=== PATIENT | female | born 1985 | race Caucasian/White ===

== ENCOUNTER 2017-07-19 00:26 | Emergency (ER) | payer SELFPAY ==
[~2017-07-19] VITALS: Ht 167.6 cm; Wt 70.0 kg
[~2017-07-19 00:26] MED LIST: SUBO8MIS SL; XANA1TAB2 PO
[2017-07-19 00:29] VITALS: BP 145/94; PULSE 130; RESP 18; TEMP 98.7; O2SAT 100
[2017-07-19] MEDS ORDERED: SODIUM CHLORIDE 0.9% FLUSH 10 ML FLUSH IVF PRN (01:00)
[2017-07-19] MEDS ORDERED: SODIUM CHLOR 0.9% 1000 ML INJ 1,000 ML IV ONE (02:00)
--- NOTE | 2017-07-19 02:17 | RADRPT ---
EXAM DATE/TIME: 07/19/2017 00:50 [facility] COMPARISON: No previous studies available for comparison. INDICATIONS : Chest pain. MEDICAL HISTORY : None. SURGICAL HISTORY : None. ENCOUNTER: Initial ACUITY: 1 day PAIN SCORE: 10/10 LOCATION: Bilateral chest FINDINGS: No infiltrate demonstrated. No pneumothorax. Slight blunting of the right costophrenic angle. Heart size normal. There is mild S-shaped thoracolumbar scoliosis. CONCLUSION: Pleural scarring or tiny effusion at the right lung base and mild scoliosis. Otherwise negative. Bienvenido Nagel MD on July 19, 2017 at 1:05 Board Certified Radiologist. This report was verified electronically.
[2017-07-19 02:28] LABS: AUTOMATED NEUTROPHIL # 11.8 TH/MM3 (1.8-7.7); BASOPHIL # 0.1 TH/MM3 (0-0.2); BASOPHIL % 0.5 % (0.0-2.0); EOSINOPHIL % 0.2 % (0.0-4.0); HEMOGLOBIN 14.2 GM/DL (11.6-15.3); LYMPH % 9.6 % (9.0-44.0); LYMPHOCYTE # 1.3 TH/MM3 (1.0-4.8); MEAN CELL VOLUME 82.7 FL (80.0-100.0); MEAN CORPUSCULAR HEMOGLOBIN 28.6 PG (27.0-34.0); MEAN CORPUSCULAR HGB CONC 34.6 % (32.0-36.0); MEAN PLATELET VOLUME 9.5 FL (7.0-11.0); MONO % 4.5 % (0.0-8.0); MONOCYTE # 0.6 TH/MM3 (0-0.9); NEUT % 85.2 % (16.0-70.0); PLATELET COUNT 142 TH/MM3 (150-450); RED BLOOD COUNT 4.96 MIL/MM3 (4.00-5.30); RED CELL DISTRIBUTION WIDTH 15.9 % (11.6-17.2); WHITE BLOOD COUNT 13.9 TH/MM3 (4.0-11.0)
[2017-07-19 02:32] LABS: ALBUMIN 4.2 GM/DL (3.4-5.0); ALKALINE PHOSPHATASE 89 U/L (45-117); ALT (GPT) 13 U/L (10-53); AST (GOT) 15 U/L (15-37); BICARBONATE 21.9 MEQ/L (21.0-32.0); BLOOD UREA NITROGEN 14 MG/DL (7-18); CHLORIDE 107 MEQ/L (98-107); CREATININE 0.81 MG/DL (0.50-1.00); GLOMERULAR FILTRATION RATE 81 ML/MIN (>89); GLUCOSE,RANDOM 84 MG/DL (74-106); MAGNESIUM 1.9 MG/DL (1.5-2.5); SODIUM (NA) 137 MEQ/L (136-145); TOTAL BILIRUBIN ADULT 0.8 MG/DL (0.2-1.0); TOTAL PROTEIN 8.9 GM/DL (6.4-8.2); TROPONIN I LESS THAN 0.02 NG/ML (0.02-0.05)
[2017-07-19 02:35] LABS: D-DIMER 1.16 MG/L FEU (0.00-0.50); PROTHROMBIN TIME - PATIENT 10.1 SEC (9.8-11.6)
[2017-07-19 02:46] VITALS: RESP 15; O2SAT 99
[2017-07-19 02:47] VITALS: BP 130/58; PULSE 92; RESP 15; O2SAT 99
--- NOTE | 2017-07-19 03:36 | PD ---
HPI . Respiratory symptoms Chief Complaint: Respiratory Symptoms Time Seen by Provider: 00:41 Travel History International Travel<30 days: No Contact w/Intl Traveler<30days: No Traveled to known affect area: No History of Present Illness HPI 32-year-old female notes relatively sudden onset of anxiety, palpitations, and shortness of breath this evening. Patient states she has never had this same type of recurrence before. Patient denies having leg pain or swelling, confine travel or recent surgery., No history of bleeding dyscrasias, blood clots, DVTs , or family history of same. Patient denies fever chills sweats. Patient denies any toxic ingestion. Patient states she takes Suboxone and has used opiates before, but is not taking any medications that would cause any type of anxiety or tachycardia including methamphetamines or cocaine. FORMERLY [facility] Past Medical History Narrative Medical Past medical history reviewed Arthritis: Yes Anxiety: Yes Depression: Yes Diminished Hearing: Yes (bilateral ear) ?: Not LMP: 06/13/17 : 2 Para: 1 : 1 Past Surgical History Oral Surgery: Yes Social History Alcohol Use: No Tobacco Use: Yes Substance Use: Yes (MARIJUANA, SUBOXONE) Allergies-Medications (Allergen,Severity, Reaction): Coded Allergies: No Known Allergies (Verified Allergy, Unknown, 07/19/17) Reported Meds & Prescriptions Reported Meds & Active Scripts Active Reported Suboxone Sublingual Film (Buprenorphine-Naloxone Sublingual Film) 8-2 Mg Film 1 Film SL Unique ID number required: Xanax (Alprazolam) 1 Mg Tab 1 Mg PO Q6H PRN Narrative Medication Allergies and medications reviewed Review of Systems Except as stated in HPI: all other systems reviewed are Neg General / Constitutional: No: Fever Eyes: No: Visual changes HENT: No: Headaches Cardiovascular: Positive: Palpitations, Tachycardia, Dyspnea on exertion, No: Chest Pain or Discomfort, Irregular Rhythm, Diaphoresis, Syncope, Varicosities, Edema, Cyanosis, Varicosities, Phlebitis, Claudication Respiratory: No: Shortness of Breath Gastrointestinal: No: Nausea, Vomiting, Abdominal Pain Genitourinary: No: Dysuria Musculoskeletal: No: Pain Skin: No Rash Neurologic: No: Weakness Psychiatric: No: Depression Endocrine: No: Polydipsia Hematologic/Lymphatic: No: Easy Bruising Physical Exam Narrative GENERAL: Awake and alert, oriented 3, no acute distress. Patient appears slightly anxious. Tachycardic sinus rhythm on monitor 110 bpm. Blood pressure was normal. Patient is afebrile SKIN: Warm and dry. Color is normal no diaphoresis cyanosis pallor no piloerection HEAD: Atraumatic. Normocephalic. EYES: Pupils equal and round. No scleral icterus. No injection or drainage. ENT: No nasal bleeding or discharge. Mucous membranes pink and moist. NECK: Trachea midline. No JVD. Supple full range of motion CARDIOVASCULAR: Tachycardic regular 110 bpm, S1-S2 no murmurs rubs or gallop RESPIRATORY: No accessory muscle use. Clear to auscultation. Breath sounds equal bilaterally. GASTROINTESTINAL: Abdomen soft, non-tender, nondistended. Hepatic and splenic margins not palpable. MUSCULOSKELETAL: Extremities without clubbing, cyanosis, or edema. No obvious deformities. NEUROLOGICAL: Awake and alert. No obvious cranial nerve deficits. Motor grossly within normal limits. Five out of 5 muscle strength in the arms and legs. Normal speech. PSYCHIATRIC: Slight anxiety Data Data Last Documented VS Vital Signs Date Time Temp Pulse Resp B/P (MAP) Pulse Ox O2 Delivery O2 Flow Rate FiO2 07/19/17 06:24 78 19 122/72 (89) 99 Room Air 07/19/17 00:29 98.7 Orders Orders Electrocardiogram (07/19/17 00:47) B-Type Natriuretic Peptide (07/19/17 00:47) Ckmb (Isoenzyme) Profile (07/19/17 00:47) Complete Blood Count With Diff (07/19/17 00:47) Comprehensive Metabolic Panel (07/19/17 00:47) D-Dimer (07/19/17 00:47) Magnesium (Mg) (07/19/17 00:47) Prothrombin Time / Inr (Pt) (07/19/17 00:47) Act Partial Throm Time (Ptt) (07/19/17:47) Troponin I (07/19/17:47) Chest, Single Ap (07/19/17 00:47) Ecg Monitoring (07/19/17 00:47) Bilateral Bp Monitoring (07/19/17 00:47) Iv Access Insert/Monitor (07/19/17 00:47) Oximetry (07/19/17:47) Oxygen Administration (07/19/17 00:47) Sodium Chloride 0.9% Flush (Ns Flush) (07/19/17 01:00) Ct Pulmonary Angiogram (07/19/17 ) Beta Hcg (Quant/Titer) (07/19/17 03:08) Sodium Chlor 0.9% 1000 Ml Inj (Ns 1000 M (07/19/17 02:00) Drug Screen, Random Urine (07/19/17 04:52) Iohexol 350 Inj (Omnipaque 350 Inj) (07/19/17 05:00) Levofloxacin (Levaquin) (07/19/17 06:15) Troponin I (07/19/17 06:01) Labs Laboratory Tests Test 07/19/17 01:15 07/19/17 05:00 07/19/17 06:25 White Blood Count 13.9 TH/MM3 Red Blood Count 4.96 MIL/MM3 Hemoglobin 14.2 GM/DL Hematocrit 41.0 % Mean Corpuscular Volume 82.7 FL Mean Corpuscular Hemoglobin 28.6 PG Mean Corpuscular Hemoglobin Concent 34.6 % Red Cell Distribution Width 15.9 % Platelet Count 142 TH/MM3 Mean Platelet Volume 9.5 FL Neutrophils (%) (Auto) 85.2 % Lymphocytes (%) (Auto) 9.6 % Monocytes (%) (Auto) 4.5 % Eosinophils (%) (Auto) 0.2 % Basophils (%) (Auto) 0.5 % Neutrophils # (Auto) 11.8 TH/MM3 Lymphocytes # (Auto) 1.3 TH/MM3 Monocytes # (Auto) 0.6 TH/MM3 Eosinophils # (Auto) 0.0 TH/MM3 Basophils # (Auto) 0.1 TH/MM3 CBC Comment DIFF FINAL Differential Comment Prothrombin Time 10.1 SEC Prothromb Time International Ratio 1.0 RATIO Activated Partial Thromboplast Time 27.5 SEC D-Dimer Quantitative (PE/DVT) 1.16 MG/L FEU Blood Urea Nitrogen 14 MG/DL Creatinine 0.81 MG/DL Random Glucose 84 MG/DL Total Protein 8.9 GM/DL Albumin 4.2 GM/DL Calcium Level 9.0 MG/DL Magnesium Level 1.9 MG/DL Alkaline Phosphatase 89 U/L Aspartate Amino Transf (AST/SGOT) 15 U/L Alanine Aminotransferase (ALT/SGPT) 13 U/L Total Bilirubin 0.8 MG/DL Sodium Level 137 MEQ/L Potassium Level 4.0 MEQ/L Chloride Level 107 MEQ/L Carbon Dioxide Level 21.9 MEQ/L Anion Gap 8 MEQ/L Estimat Glomerular Filtration Rate 81 ML/MIN Total Creatine Kinase 98 U/L Troponin I LESS THAN 0.02 NG/ML B-Type Natriuretic Peptide 14 PG/ML Human Chorionic Gonadotropin, Quant LESS THAN 1 MIU/ML Urine Opiates Screen NEG Urine Barbiturates Screen NEG Urine Amphetamines Screen NEG Urine Benzodiazepines Screen NEG Urine Cocaine Screen POS Urine Cannabinoids Screen POS MDM Medical Decision Making Medical Screen Exam Complete: Yes Emergency Medical Condition: Yes Medical Record Reviewed: Yes Differential Diagnosis Pulmonary embolus, toxic ingestion, anxiety, dehydration, sepsis Narrative Course Patient has a positive d-dimer, CT pulmonary angiogram ordered. EKG sinus tachycardia 117 bpm, rate related changes, intervals otherwise normal. Slight IVCD noted The remainder of patient's laboratory examinations reviewed, no significant amount CT pulmonary angina negative for pulmonary embolus. Patient has emphysema noted in superior portion bilateral lungs right worse than left. Patient has no history of use of inhalants, but does have history of smoking. Patient's white blood cell count elevated 13.9, patient may have early infiltrate on CT. Treated with Levaquin p.o. Patient feels greatly improved, heart rate normal, BP normal. Patient sleeping comfortably. Discharge Diagnosis Primary Impression: Acute bronchitis Qualified Codes: J20.9 - Acute bronchitis, unspecified Patient Instructions: Acute Bronchitis (ED), General Instructions Additional Instructions: Bactrim double strength 1 tablet twice daily for 10 days ([place]). Tylenol for aches pains fever. Follow-up with [facility]/your doctor. Return promptly for worsening Scripts Sulfamethoxazole-Trimethoprim (Bactrim DS) 800-160 Mg Tab 1 TAB PO BID for Infection, #20 TAB 0 Refills Prov: Diomedes Stout MD 07/19/17 Disposition: DISCHARGE HOME Condition: Stable Diomedes Stout MD Jul 19, 2017 03:36
[2017-07-19] MEDS ORDERED: IOHEXOL 350 MG/ML 10 ML VIAL (for RAD DIAG) IVCONTRAST ONE (05:00)
--- NOTE | 2017-07-19 05:09 | RADRPT ---
EXAM DATE/TIME: 07/19/2017 04:50 [facility] COMPARISON: No previous studies available for comparison. INDICATIONS : Shortness of breath with palpitations. Elevated D-Dimer. Rule out pulmonary embolus. IV CONTRAST: 70 cc Omnipaque 350 (iohexol) IV RADIATION DOSE: 7.77 CTDIvol (mGy) MEDICAL HISTORY : Substance abuse SURGICAL HISTORY : ENCOUNTER: Initial ACUITY: 1 day PAIN SCALE: 0/10 LOCATION: chest TECHNIQUE: Volumetric scanning of the chest was performed using a pulmonary embolism protocol MIP images were re constructed. Using automated exposure control and adjustment of the mA and/or kV according to patien t size, radiation dose was kept as low as reasonably achievable to obtain optimal diagnostic quality images. DICOM format image data is available electronically for review and comparison. Follow-up recommendations for detected pulmonary nodules are based at a minimum on nodule size and pa tient risk factors according to Fleischner Society Guidelines. FINDINGS: PULMONARY ARTERIES: No filling defects are seen in the pulmonary arteries through the segmental level. LUNGS: Mild to moderate emphysema. Mild patchy airspace opacities of both bases, most typical of atelectasis . PLEURAE: There is no pleural thickening or pleural effusion. MEDIASTINUM: There is good visualization of the great vessels of the middle mediastinum. No evidence of mediastin al or hilar adenopathy/mass. MUSCULOSKELETAL: No acute bony abnormality demonstrated. There is mild to moderate S-shaped thoracolumbar scoliosis. MISCELLANEOUS: The visualized upper abdominal organs demonstrate no acute abnormality. CONCLUSION: No pulmonary embolus. Mild bibasilar atelectasis, emphysema and scoliosis. Bienvenido Nagel MD on July 19, 2017 at 5:06 Board Certified Radiologist. This report was verified electronically.
[2017-07-19 05:12] VITALS: BP 114/55; PULSE 75; RESP 19; O2SAT 97
[2017-07-19 05:13] VITALS: BP 117/61; PULSE 76; RESP 17; O2SAT 98
[2017-07-19] MEDS ORDERED: LEVOFLOXACIN 750 MG TAB PO ONE (06:15)
[2017-07-19 06:24] VITALS: BP 122/72; PULSE 78; RESP 19; O2SAT 99
[2017-07-19] MEDS ORDERED: BACT800T5 PO (07:14)
--- NOTE | 2017-07-19 09:17 | EKG ---
Date Performed: 07/19/2017 Time Performed: 00:39:22 PTAGE: 32 years EKG: SINUS TACHYCARDIA POSSIBLE LEFT ATRIAL ENLARGEMENT SEPTAL MYOCARDIAL INFARCTION ABNORMAL EC G PREVIOUS TRACING : 12/19/2010 19.28 Compared to previous tracing, heart rate has increased. DOCTOR: Hubert Guzman Interpretating Date/Time 07/19/2017 09:17:30
== END 2017-07-19 07:49 | disposition home or self-care (01) ==
LOC: NEPE 00:26
DX: J20.9 Acute bronchitis, unspecified (principal); R94.31 Abnormal electrocardiogram [ECG] [EKG]; R06.02 Shortness of breath; F41.9 Anxiety disorder, unspecified; F32.9 Major depressive disorder, single episode, unspecified; M19.90 Unspecified osteoarthritis, unspecified site; Z72.0 Tobacco use; F12.90 Cannabis use, unspecified, uncomplicated; F11.90 Opioid use, unspecified, uncomplicated
CPT/HCPCS: 71045; 71275; 80053; 80307; 82550; 83735; 83880; 84484; 84702; 85025; 85379; 85610; 85730; 93005; 96360; 96361; 99285; J7030; Q9967